=== PATIENT | male | born 1935 | race Caucasian/White ===

== ENCOUNTER 2019-02-28 05:22 | Emergency (ER) | payer MEDICARE ==
[~2019-02-28] VITALS: Ht 167.6 cm; Wt 81.8 kg
[~2019-02-28 05:22] MED LIST: ASPIRIN 81M81 MG/TA2 PO; BENAZEPRIL PO; BUSPAR 30MG30 MG/TAB PO; BYSTOLIC5 MG PO; CANA100T PO; CARDURA 2MG2 MG PO; CELEBREX 200MG200 MG PO; CELEBREX200 MG PO; CEPHALEXIN500 M1 PO; COZAAR 50MG50 MG/TAB PO; DESYREL 50MG50 MG PO; FORTAMET500 MG PO; FUROSEMIDE20 MG PO; JANUMET 1000 MG1 TA1 PO; KEPPRA 500MG500 MG PO; LANTUS SOLOS100 U/ML SC; LASIX 20MG TABL20 MG PO; LEXAPRO 10MG10 MG PO; LISINOPRIL/HCTZ1 TA2 PO; LOPRESSOR 225 MG/TAB PO; LORTAB 7.5/5001 TAB; LOTENSIN10 MG PO; NAPROSYN; NEXIUM 40MG40 MG PO; NEXIUM40 MG PO; NORCO 325 MG-51 TAB PO; NOVOLOG FLEX100 U/ML SC; PRINZIDE 25 MG-1 TAB PO; PROTONIX 40MG T40 MG PO; RELAFEN750 MG PO; SERZONE PO; SYNTHROID0.05 MG/TA PO; TENORMIN 5050 MG/TAB PO; TRAMADOL50 MG PO; TRIAMTERENE AND1 TA1 PO; TRIAMTERENE W/H1 CAP PO; ULTRAM 50MG TAB50 MG PO; XOPENEX HF0.045 MG/A IH; ZOCOR 40MG40 MG PO; ZOCOR40 MG PO; ZYLOPRIM 300MG300 MG PO
[2019-02-28 05:25] VITALS: TEMP 98.1
[2019-02-28 05:47] LABS: BASO % 0.4 % (0.0-2.0); EOS # 0.3 (0.0-0.7); GRAN # 6.6 (1.4-6.5); GRAN % 69.4 % (42.2-75.2); HEMATOCRIT 47.3 % (42.0-52.0); HEMOGLOBIN 15.5 g/dl (13.5-18.0); LYMPH # 1.2 (1.2-3.4); LYMPH % 12.6 % (20.0-51.0); MEAN CELL VOLUME 96 fl (80.0-100.0); MEAN CORPUSCULAR HEMOGLOBIN 31 pg (27.0-31.0); MEAN CORPUSCULAR HGB CONC 33 g/dl (33.0-37.0); MEAN PLATELET VOLUME 11.1 fl (7.4-10.4); MONO # 1.3 (0.1-0.6); MONO % 13.4 % (1.7-9.3); PLATELET COUNT 181 K/mm3 (130-400); RED BLOOD COUNT 4.94 M/mm3 (4.20-5.60); REDCELL DISTRIBUTION WIDTH-CV 13.4 % (11.5-14.5)
[2019-02-28 05:51] LABS: INR 1.9 (0.8-3.0); PROTHROMBIN TIME 22.2 SECONDS (9.7-12.8)
[2019-02-28 05:58] LABS: ALANINE AMINOTRANSFERASE 12 U/L (21-72); ALBUMIN 4.7 gm/dL (3.5-5.0); ALKALINE PHOSPHATASE 83 U/L (50-136); ANION GAP 10 mmol/L (7-16); AST,SGOT 24 U/L (15-37); BILIRUBIN,TOTAL 0.9 mg/dL (0.0-1.0); BLOOD UREA NITROGEN 19 mg/dL (9-20); CALCIUM 9.5 mg/dL (8.4-10.2); CARBON DIOXIDE 25 mmol/L (22-30); CHLORIDE 102 mmol/L (98-107); CREATININE, serum 1.23 (0.66-1.25); GLUCOSE 109 mg/dL (74-106); POTASSIUM 4.3 mmol/L (3.4-5.0); SODIUM 137 mmol/L (137-145); TOTAL PROTEIN 7.7 gm/dL (6.4-8.2)
[2019-02-28] MEDS ORDERED: ZANTAC 150MG T150 MG PO (06:11)
[2019-02-28 06:13] LABS: TROPONIN-I < 0.012 ng/mL (0.000-0.035)
[2019-02-28] MEDS ORDERED: COUMADIN 5MG5 MG/TAB PO (06:13)
[2019-02-28] MEDS ORDERED: FLEXERIL5 MG PO (10:11)
[2019-02-28 10:13] VITALS: BP 136/86; PULSE 63
== END 2019-02-28 10:13 | disposition home or self-care (01) ==
LOC: COL.ER 05:22
PROVIDERS: Emergency Medicine
DX: R07.89 Other chest pain (principal); I48.91 Unspecified atrial fibrillation; E03.9 Hypothyroidism, unspecified; E11.9 Type 2 diabetes mellitus without complications; I10 Essential (primary) hypertension; Z90.89 Acquired absence of other organs; Z79.84 Long term (current) use of oral hypoglycemic drugs; Z79.01 Long term (current) use of anticoagulants